=== PATIENT | female | born 1985 | race Caucasian/White ===

== ENCOUNTER 2017-02-20 13:32 | Inpatient (IN) | payer OTHER ==
[~2017-02-20] VITALS: Ht 172.7 cm; Wt 95.9 kg
[2017-02-20] VITALS (30 sets, daily range): BP systolic 95–138; BP diastolic 57–80; PULSE 69–107; TEMP 98.2–98.6
[~2017-02-20 13:32] MED LIST: PRENATAL VITAMI1 TA5 PO
[2017-02-20 14:40] LABS: BASO % 0.2 % (0.0-2.0); EOS # 0.1 (0.0-0.7); EOS % 0.7 % (0-4.0); GRAN # 5.3 (1.4-6.5); GRAN % 65.5 % (42.2-75.2); LYMPH # 1.8 (1.2-3.4); LYMPH % 22.2 % (20.0-51.0); MEAN CELL VOLUME 90 fl (80.0-100.0); MEAN CORPUSCULAR HGB CONC 33 g/dl (33.0-37.0); MEAN PLATELET VOLUME 10.7 fl (7.4-10.4); MONO # 0.9 (0.1-0.6); PLATELET COUNT 200 K/mm3 (130-400); REDCELL DISTRIBUTION WIDTH-CV 13.6 % (11.5-14.5); WHITE BLOOD COUNT 8.2 K/mm3 (4.8-10.8)
[2017-02-20 14:43] LABS: HEMOGLOBIN 11.6 g/dl (12.5-16.0); MEAN CORPUSCULAR HEMOGLOBIN 30 pg (27.0-31.0)
[2017-02-21 04:15] VITALS: BP 120/70; PULSE 88; TEMP 98
[2017-02-21 05:45] VITALS: BP 109/72; PULSE 85; TEMP 97.6
[2017-02-21 07:55] VITALS: BP 105/53; PULSE 81; TEMP 97.9
[2017-02-21] MEDS ORDERED: IBU800 M1 PO (11:56)
[2017-02-21] MEDS ORDERED: PERCOCET 325 MG1 TA2 PO (11:56)
[2017-02-21 16:05] VITALS: BP 114/67; PULSE 108; TEMP 97.7
[2017-02-21 19:30] VITALS: BP 118/78; PULSE 116; TEMP 98.5
== END 2017-02-21 19:45 | disposition home or self-care (01) | DRG 775 ==
LOC: LDRO 13:32 → OB 13:41 → LDR 13:41 → OB 21:03
PROVIDERS: Obstetrics & Gynecology
PROC: 10E0XZZ Delivery of Products of Conception, External Approach (ICD-10-PCS; principal; 2017-02-20)
PROC: 0KQM0ZZ Repair Perineum Muscle, Open Approach (ICD-10-PCS; 2017-02-20)
DX: O48.0 Post-term pregnancy (principal); O70.1 Second degree perineal laceration during delivery; O69.81X0 Labor and delivery complicated by cord around neck, without compression, not applicable or unspecified; Z3A.40 40 weeks gestation of pregnancy; Z37.0 Single live birth
CPT/HCPCS: J2590; J2795; J7120

== ENCOUNTER 2018-05-30 16:31 | Emergency (ER) | payer SELFPAY ==
[~2018-05-30] VITALS: Ht 172.7 cm; Wt 66.4 kg
[~2018-05-30 16:31] MED LIST changes: +IBU800 M1 PO; +PERCOCET 325 MG1 TA2 PO
[2018-05-30 16:34] VITALS: TEMP 98.6
[2018-05-30 17:08] LABS: BASO % 0.3 % (0.0-2.0); EOS % 0.3 % (0-4.0); GRAN # 1.4 (1.4-6.5); GRAN % 39.2 % (42.2-75.2); HEMATOCRIT 37.9 % (37.0-47.0); HEMOGLOBIN 12.5 g/dl (12.5-16.0); LYMPH # 1.4 (1.2-3.4); LYMPH % 38.1 % (20.0-51.0); MEAN CELL VOLUME 79 fl (80.0-100.0); MEAN CORPUSCULAR HEMOGLOBIN 26 pg (27.0-31.0); MEAN CORPUSCULAR HGB CONC 33 g/dl (33.0-37.0); MEAN PLATELET VOLUME 11.4 fl (7.4-10.4); MONO # 0.8 (0.1-0.6); MONO % 21.8 % (1.7-9.3); PLATELET COUNT 161 K/mm3 (130-400); RED BLOOD COUNT 4.79 M/mm3 (4.10-5.30); REDCELL DISTRIBUTION WIDTH-CV 12.9 % (11.5-14.5)
[2018-05-30 17:16] LABS: ALANINE AMINOTRANSFERASE 68 U/L (9-52); ALBUMIN 3.9 gm/dL (3.5-5.0); ALKALINE PHOSPHATASE 239 U/L (50-136); ANION GAP 14 mmol/L (7-16); AST,SGOT 48 U/L (15-37); BILIRUBIN,TOTAL 0.6 mg/dL (0.0-1.0); BLOOD UREA NITROGEN 18 mg/dL (7-17); CALCIUM 8.9 mg/dL (8.4-10.2); CARBON DIOXIDE 22 mmol/L (22-30); CHLORIDE 101 mmol/L (98-107); CREATININE, serum 0.41 mg/dL (0.52-1.25); GLUCOSE 101 mg/dL (74-106); LIPASE 177 U/L (23-300); SODIUM 137 mmol/L (137-145); TOTAL PROTEIN 6.9 gm/dL (6.4-8.2)
[2018-05-30 17:55] LABS: THYROID STIMULATING HORMONE < 0.015 uIU/mL (0.465-4.680)
[2018-05-30 18:35] VITALS: BP 159/97; PULSE 128
[2018-05-30 18:43] LABS: COLLECTION METHOD CLEAN CATCH
[2018-05-30 19:00] LABS: MUCOUS Present /lpf; PH 5 (5-8); SQUAMOUS EPITHELIAL 0-2 /hpf; URINE APPEARANCE Hazy; URINE BACTERIA None Seen /hpf; URINE BILIRUBIN Negative (NEGATIVE); URINE BLOOD 2+ (NEGATIVE); URINE CALCIUM OXALATE CRYSTAL Present /hpf; URINE COLOR Yellow; URINE GLUCOSE Negative (NEGATIVE); URINE KETONE Trace (NEGATIVE); URINE LEUKOCYTE ESTERASE Negative (NEGATIVE); URINE NITRATE Negative (NEGATIVE); URINE PROTEIN(semi-quant) 2+ (NEGATIVE); URINE RBC 20-50 /hpf; URINE UROBILINOGEN >=4.0 mg/dL (NEGATIVE)
== END 2018-05-30 18:35 | disposition short-term general hospital (02) ==
LOC: COL.ER 16:31
PROVIDERS: Emergency Medicine
DX: R10.30 Lower abdominal pain, unspecified (principal); I48.92 Unspecified atrial flutter; E03.9 Hypothyroidism, unspecified
CPT/HCPCS: J1720; J1800; J7030